=== PATIENT | female | born 1995 | race Caucasian/White ===

== ENCOUNTER 2017-09-10 11:19 | Emergency (ER) | payer OTHER ==
[~2017-09-10] VITALS: Ht 180.3 cm; Wt 53.5 kg
[2017-09-10 11:36] VITALS: BP 105/73
--- NOTE | 2017-09-10 12:22 | Emergency Room Report ---
History of Present Illness General Chief Complaint: Skin Rash/Abscess Source: Patient Present Illness HPI Patient complains of rash itchy intermittent for 2 week Worse at night Denies fevers chills, mucous membrane involvement She reports she is taking gabapentin and has had no change in any other medications She has no other problems She has tried no other meds, but reports she's had steroids in the past when she 's had similar complaint Allergies: Coded Allergies: No Known Allergies (Unverified , 09/10/17) Patient History Past Medical History: see triage record Last Menstrual Period: 06/16/17 Reviewed Nursing Documentation: PMH: Agreed, PSxH: Agreed Nursing Documentation-PMH Hx Seizures: Yes Review of Systems All Other Systems: negative except mentioned in HPI Physical Exam Vital Signs Date Time Temp Pulse Resp B/P (MAP) Pulse Ox O2 Delivery O2 Flow Rate FiO2 09/10/17 11:30 98.1 99 18 105/73 98 Room Air Sp02 EP Interpretation: reviewed, normal General Appearance: no apparent distress, alert, non-toxic Head: normocephalic Eyes: bilateral eye normal inspection, bilateral eye PERRL, bilateral eye EOMI ENT: normal ENT inspection, hearing grossly normal, normal pharynx, no angioedema, normal voice, moist mucus membranes Neck: normal inspection, full range of motion, supple, supple/symm/no masses Respiratory: chest non-tender, lungs clear, normal breath sounds, chest symmetrical, palpation of chest normal Cardiovascular #1: normal peripheral pulses, regular rate, rhythm Cardiovascular #2: 2+ radial (R), 2+ radial (L) Gastrointestinal: normal inspection, non tender, soft, no mass, no guarding, no rebound Rectal: deferred Genitourinary: normal inspection, no CVA tenderness Musculoskeletal: back normal, gait/station normal, normal range of motion, non- tender, no calf tenderness Neurologic: alert, responsive, estate conservator III-XII nml as tested, motor strength/tone normal, sensory intact, speech normal Psychiatric: judgement/insight normal, memory normal, mood/affect normal, no suicidal/homicidal ideation Skin: normal color, no rash - very sparse areas of petechial, nonblanching rash on trunk and all extremities patient subjectively reports it's worse at night and is minimal now no obvious pruritus, warm/dry, normal turgor Lymphatic: no adenopathy Medical Decision Making Diagnostic Impression: Primary Impression: Rash and other nonspecific skin eruption ER Course patient with rash, very nonspecific, and very unimpressive on examination today , just a few red spots which are pinpoint and diffuse not confluent at all and do not appear to be causing any itching or pain; they're not raisedand they appear very benign. patient will receive one dose of by mouth Decadron 2 mg here and followup with a geological survey field assistant if symptoms persist. Medication reconciliation and review of triggers reveal no obvious etiology, but rash presentation is very benign patient had a normal CBC, do not suspect any platelet disorder causing serious rash Last Vital Signs Date Time Temp Pulse Resp B/P (MAP) Pulse Ox O2 Delivery O2 Flow Rate FiO2 09/10/17 11:36 98.1 69 18 105/73 98 Room Air Disposition: HOME, SELF-CARE Condition: Stable MICHELET ALLEN M.D Sep 10, 2017 12:22
[2017-09-10 12:36] LABS: BASOPHILS % (AUTO) 1.4 % (0.0-2.0); EOSINOPHILS % (AUTO) 1.5 % (0.0-3.0); HEMATOCRIT 42.3 % (37.0-47.0); LYMPHOCYTES % (AUTO) 34.8 % (20.0-45.0); MEAN CORPUSCULAR VOLUME 90 FL (80-99); MONOCYTES % (AUTO) 7.7 % (1.0-10.0); NEUTROPHILS % (AUTO) 54.6 % (45.0-75.0); PLATELET COUNT 251 K/UL (150-450); RED BLOOD COUNT 4.69 M/UL (4.20-5.40); RED CELL DISTRIBUTION WIDTH 12.1 % (11.6-14.8); WHITE BLOOD COUNT 7.2 K/UL (4.8-10.8)
[2017-09-10 13:28] VITALS: BP 106/78
== END 2017-09-10 13:29 | disposition home or self-care (01) ==
LOC: EMR 12:55
DX: R21 Rash and other nonspecific skin eruption (principal)
CPT/HCPCS: 36415; 85025; 99282; J8540

== ENCOUNTER 2018-05-02 10:40 | Emergency (ER) | payer OTHER ==
[~2018-05-02] VITALS: Ht 177.8 cm; Wt 54.4 kg
[2018-05-02] MEDS ORDERED: GABAPENTIN600 MG ORAL (10:49)
[2018-05-02] MEDS ORDERED: NALTREXONE HCL5 GM MC (10:49)
[2018-05-02 10:51] VITALS: BP 110/63
[2018-05-02 11:22] LABS: APPEARANCE,URINE CLEAR; BILIRUBIN, URINE NEGATIVE (NEGATIVE); COLOR,URINE PALE YELLOW; GLUCOSE, URINE (UA) NEGATIVE (NEGATIVE); KETONES,URINE NEGATIVE (NEGATIVE); LEUKOCYTE ESTERASE ,URINE 1+ (NEGATIVE); NITRITE,URINE NEGATIVE (NEGATIVE); PH,URINE 6 (4.5-8.0); PROTEIN,URINE NEGATIVE (NEGATIVE); UROBILINOGEN,URINE NORMAL MG/DL (0.0-1.0)
[2018-05-02 12:38] LABS: BASOPHILS % (AUTO) 1.1 % (0.0-2.0); EOSINOPHILS % (AUTO) 5.7 % (0.0-3.0); HEMATOCRIT 44.2 % (37.0-47.0); HEMOGLOBIN 14.4 G/DL (12.0-16.0); LYMPHOCYTES % (AUTO) 40.8 % (20.0-45.0); MEAN CORPUSCULAR VOLUME 88 FL (80-99); MONOCYTES % (AUTO) 6.9 % (1.0-10.0); NEUTROPHILS % (AUTO) 45.6 % (45.0-75.0); PLATELET COUNT 261 K/UL (150-450); RED BLOOD COUNT 5.01 M/UL (4.20-5.40); RED CELL DISTRIBUTION WIDTH 11.5 % (11.6-14.8); WHITE BLOOD COUNT 6.6 K/UL (4.8-10.8)
--- NOTE | 2018-05-02 13:30 | Emergency Room Report ---
History of Present Illness General Chief Complaint: Back Pain-No Injury Source: Patient Present Illness [facility] This patient has multiple complaints. She states that she has had some upper back pain that comes and goes. She states she's also had multiple episodes of a tingling sensation all over her body. She states that she also became very sweaty during the episodes. She states right now she feels much better. She did see an urgent care and had some basic labs done. She states that she was told her BUN was low. She denies recent illness. She denies cough or congestion. She denies chest pain or shortness of breath. She denies abdominal pain. She denies dysuria or hematuria. She denies abnormal vaginal discharge. She has no other complaints. Allergies: Coded Allergies: No Known Allergies (Unverified , 09/10/17) Patient History Past Medical History: see triage record, seizures Social History: Reports: drug use - THC; Denies: smoking, alcohol use Now: No Reviewed Nursing Documentation: PMH: Agreed; PSxH: Agreed Nursing Documentation-PMH Past Medical History: No Stated History Hx Seizures: Yes Review of Systems All Other Systems: negative except mentioned in HPI Physical Exam Vital Signs Date Time Temp Pulse Resp B/P (MAP) Pulse Ox O2 Delivery O2 Flow Rate FiO2 05/02/18 10:41 97.9 111 19 110/63 98 Room Air 97.9 Sp02 EP Interpretation: reviewed, normal General Appearance: no apparent distress, alert, GCS 15, non-toxic Head: normocephalic, atraumatic Eyes: bilateral eye normal inspection, bilateral eye PERRL ENT: hearing grossly normal, normal pharynx, no angioedema, normal voice Neck: full range of motion, supple/symm/no masses Respiratory: chest non-tender, lungs clear, normal breath sounds, no respiratory distress, no retraction, no accessory muscle use, speaking full sentences Cardiovascular #1: no edema, tachycardia Gastrointestinal: normal bowel sounds, non tender, soft, non-distended, no guarding, no rebound Rectal: deferred Musculoskeletal: back normal, gait/station normal, normal range of motion, non- tender Neurologic: alert, oriented x3, responsive, motor strength/tone normal, sensory intact, speech normal Psychiatric: judgement/insight normal, memory normal, mood/affect normal, no suicidal/homicidal ideation Skin: normal color, no rash, warm/dry, well hydrated Medical Decision Making Diagnostic Impression: Primary Impression: Chills Additional Impression: Back pain ER Course Patient presented with very nonspecific symptoms. She describes several episodes where she became clammy. She also has had some back pain that is most consistent with a mechanical low back pain. Regardless, I did do a thorough laboratory evaluation which included CBC, CMP, thyroid function tests and a urinalysis. The patient overall was nontoxic with a normal physical examination. I did not identify an emergency medical condition. When I went to discuss this with the patient she became very agitated and frustrated. She raised her voice and demanded to know what was wrong with her that she knew her body and something is wrong with her. Further, I explained to her that she would need to follow-up with her primary care physician for testing that could be more specific, such as vitamin testing. The patient became even more agitated and frustrated. She then left the emergency department without her discharge paperwork. I'm unsure of the source of this patient's frustration. Prior to this, the patient was calm and pleasant and our interactions were pleasant. She seemed to rapidly have a change in her mood. Regardless, I did not identify any emergency medical condition and I do not feel that she needed any further testing. She eloped without paperwork. Laboratory Tests Test 05/02/18 10:50 05/02/18 12:20 Urine Color Pale yellow Urine Appearance Clear Urine pH 6 (4.5-8.0) Urine Specific [place] 1.010 (1.005-1.035) Urine Protein Negative (NEGATIVE) Urine Glucose (UA) Negative (NEGATIVE) Urine Ketones Negative (NEGATIVE) Urine Blood Negative (NEGATIVE) Urine Nitrite Negative (NEGATIVE) Urine Bilirubin Negative (NEGATIVE) Urine Urobilinogen Normal MG/DL (0.0-1.0) Urine Leukocyte Esterase 1+ (NEGATIVE) H Urine RBC 0-2 /HPF (0 - 2) Urine WBC 2-4 /HPF (0 - 2) Urine Squamous Epithelial Cells Many /LPF (NONE/OCC) H Urine Bacteria Few /HPF (NONE) Urine HCG, Qualitative Negative (NEGATIVE) Urine Opiates Screen Negative (NEGATIVE) Urine Barbiturates Screen Negative (NEGATIVE) Phencyclidine (PCP) Screen Negative (NEGATIVE) Urine Amphetamines Screen Negative (NEGATIVE) Urine Benzodiazepines Screen Negative (NEGATIVE) Urine Cocaine Screen Negative (NEGATIVE) Urine Marijuana (THC) Screen Negative (NEGATIVE) White Blood Count 6.6 K/UL (4.8-10.8) Red Blood Count 5.01 M/UL (4.20-5.40) Hemoglobin 14.4 G/DL (12.0-16.0) Hematocrit 44.2 % (37.0-47.0) Mean Corpuscular Volume 88 FL (80-99) Mean Corpuscular Hemoglobin 28.7 PG (27.0-31.0) Mean Corpuscular Hemoglobin Concent 32.6 G/DL (32.0-36.0) Red Cell Distribution Width 11.5 % (11.6-14.8) L Platelet Count 261 K/UL (150-450) Mean Platelet Volume 8.0 FL (6.5-10.1) Neutrophils (%) (Auto) 45.6 % (45.0-75.0) Lymphocytes (%) (Auto) 40.8 % (20.0-45.0) Monocytes (%) (Auto) 6.9 % (1.0-10.0) Eosinophils (%) (Auto) 5.7 % (0.0-3.0) H Basophils (%) (Auto) 1.1 % (0.0-2.0) Sodium Level 138 MMOL/L (136-145) Potassium Level 4.7 MMOL/L (3.5-5.1) Chloride Level 104 MMOL/L (98-107) Carbon Dioxide Level 25 MMOL/L (21-32) Anion Gap 9 mmol/L (5-15) Blood Urea Nitrogen 8 mg/dL (7-18) Creatinine 0.8 MG/DL (0.55-1.30) Estimate Glomerular Filtration Rate > 60 mL/min (>60) Glucose Level 89 MG/DL (74-106) Calcium Level 9.1 MG/DL (8.5-10.1) Total Bilirubin 0.3 MG/DL (0.2-1.0) Aspartate Amino Transferase (AST) 28 U/L (15-37) Alanine Aminotransferase (ALT) 30 U/L (12-78) Alkaline Phosphatase 87 U/L (46-116) Total Protein 7.2 G/DL (6.4-8.2) Albumin 3.8 G/DL (3.4-5.0) Globulin 3.4 g/dL Albumin/Globulin Ratio 1.1 (1.0-2.7) Thyroid Stimulating Hormone (TSH) 1.494 uiU/mL (0.358-3.740) Free Thyroxine 0.80 NG/DL (0.76-1.46) Last Vital Signs Date Time Temp Pulse Resp B/P (MAP) Pulse Ox O2 Delivery O2 Flow Rate FiO2 05/02/18 10:51 97.9 19 110/63 98 Room Air 97.9 05/02/18 10:41 111 Disposition: ELOPED Condition: Stable Referrals: NOT CHOSEN IPA/,REFERRING (PCP) Layla Pearce DO May 02, 2018 13:30
[2018-05-02 14:00] VITALS: BP_SYST 12; BP_SYST 120; BP_DIAS 75
[2018-05-02 14:23] LABS: ANION GAP 9 mmol/L (5-15); BLOOD UREA NITROGEN 8 mg/dL (7-18); CALCIUM 9.1 MG/DL (8.5-10.1); CARBON DIOXIDE 25 MMOL/L (21-32); CHLORIDE 104 MMOL/L (98-107); CREATININE 0.8 MG/DL (0.55-1.30); POTASSIUM 4.7 MMOL/L (3.5-5.1); SODIUM 138 MMOL/L (136-145)
[2018-05-02 14:33] LABS: ALANINE AMINOTRANSFERASE 30 U/L (12-78); ALBUMIN 3.8 G/DL (3.4-5.0); ALBUMIN/GLOBULIN RATIO 1.1 (1.0-2.7); ASPARTATE AMINO TRANSFERASE 28 U/L (15-37); BILIRUBIN,TOTAL 0.3 MG/DL (0.2-1.0)
[2018-05-02 14:34] LABS: ALKALINE PHOSPHATASE 87 U/L (46-116)
[2018-05-02 14:49] VITALS: BP 110/63
== END 2018-05-02 14:49 | disposition left against medical advice (07) ==
LOC: EMR 11:05
DX: M54.9 Dorsalgia, unspecified (principal); R68.83 Chills (without fever)
CPT/HCPCS: 36415; 80053; 80307; 81003; 81025; 84439; 84443; 85025; 99284

== ENCOUNTER 2018-06-03 16:33 | Emergency (ER) | payer OTHER ==
[~2018-06-03] VITALS: Ht 160 cm; Wt 54.4 kg
[~2018-06-03 16:33] MED LIST: GABAPENTIN600 MG ORAL; NALTREXONE HCL5 GM MC
[2018-06-03 16:38] VITALS: BP 98/64
--- NOTE | 2018-06-03 16:40 | Emergency Room Report ---
History of Present Illness General Chief Complaint: Overdose Source: Patient Present Illness HPI Patient is a 22-year-old female who presented after reported overdose of heroin. Patient had been given Narcan 4mg intranasally by EMS. patient subsequently been having increased nausea. The patient states she does not recall using. Patient was reportedly found unresponsive by EMS with a depressed respirations.Patient denies any recent opiate use. She reports increased nausea Allergies: Coded Allergies: No Known Allergies (Unverified , 09/10/17) Patient History Past Medical History: see triage record Last Menstrual Period: 2 weeks ago Reviewed Nursing Documentation: PMH: Agreed; PSxH: Agreed Nursing Documentation-PMH Past Medical History: No History, Except For Hx Seizures: Yes Review of Systems All Other Systems: negative except mentioned in HPI Physical Exam Vital Signs Date Time Temp Pulse Resp B/P (MAP) Pulse Ox O2 Delivery O2 Flow Rate FiO2 06/03/18 16:35 97.8 130 18 98/64 99 Room Air 97.9 General Appearance: well appearing, no apparent distress, alert, GCS 15 Head: normocephalic, atraumatic ENT: hearing grossly normal, normal voice Neck: full range of motion, supple Respiratory: no respiratory distress, speaking full sentences Musculoskeletal: no calf tenderness Neurologic: normal gait Psychiatric: mood/affect normal Skin: no rash Medical Decision Making Diagnostic Impression: Primary Impression: Drug overdose Last Vital Signs Date Time Temp Pulse Resp B/P (MAP) Pulse Ox O2 Delivery O2 Flow Rate FiO2 06/03/18 16:35 97.8 130 18 98/64 99 Room Air 97.9 Jason Velazquez MD Jun 03, 2018 16:40
[2018-06-03] MEDS ORDERED: Ketorolac 30mg Inj IV ONE (17:00)
[2018-06-03 17:23] LABS: ANION GAP 18 mmol/L (5-15); BLOOD UREA NITROGEN 23 mg/dL (7-18); CARBON DIOXIDE 21 MMOL/L (21-32); CHLORIDE 100 MMOL/L (98-107); CREATININE 1.3 MG/DL (0.55-1.30); POTASSIUM 4.5 MMOL/L (3.5-5.1); SODIUM 139 MMOL/L (136-145)
[2018-06-03 17:24] LABS: BASOPHILS % (AUTO) 0.3 % (0.0-2.0); EOSINOPHILS % (AUTO) 0.1 % (0.0-3.0); HEMATOCRIT 37.6 % (37.0-47.0); HEMOGLOBIN 12.7 G/DL (12.0-16.0); LYMPHOCYTES % (AUTO) 12.8 % (20.0-45.0); MEAN CORPUSCULAR VOLUME 89 FL (80-99); MONOCYTES % (AUTO) 2.7 % (1.0-10.0); NEUTROPHILS % (AUTO) 84.1 % (45.0-75.0); PLATELET COUNT 367 K/UL (150-450); RED BLOOD COUNT 4.21 M/UL (4.20-5.40); RED CELL DISTRIBUTION WIDTH 12.3 % (11.6-14.8)
[2018-06-03 17:28] LABS: ALANINE AMINOTRANSFERASE 52 U/L (12-78); ALBUMIN 3.8 G/DL (3.4-5.0); ALKALINE PHOSPHATASE 117 U/L (46-116); ASPARTATE AMINO TRANSFERASE 46 U/L (15-37); BILIRUBIN,TOTAL 0.5 MG/DL (0.2-1.0); CREATINE KINASE 75 U/L (26-308)
[2018-06-03 18:09] VITALS: BP 101/62
[2018-06-03 18:29] LABS: APPEARANCE,URINE CLEAR; BILIRUBIN, URINE NEGATIVE (NEGATIVE); GLUCOSE, URINE (UA) NEGATIVE (NEGATIVE); KETONES,URINE 4+ (NEGATIVE); LEUKOCYTE ESTERASE ,URINE NEGATIVE (NEGATIVE); NITRITE,URINE NEGATIVE (NEGATIVE); PH,URINE 6 (4.5-8.0); PROTEIN,URINE 2+ (NEGATIVE); UROBILINOGEN,URINE NORMAL MG/DL (0.0-1.0)
[2018-06-03 18:33] LABS: COLOR,URINE YELLOW
== END 2018-06-03 18:12 | disposition home or self-care (01) ==
LOC: EDUNIT# 16:33 → EDBD 16:33 → EMR 16:55
DX: T40.1X1A Poisoning by heroin, accidental (unintentional), initial encounter (principal); Y92.9 Unspecified place or not applicable; R11.0 Nausea
CPT/HCPCS: 36415; 80053; 80329; 81001; 81025; 82550; 85025; 96361; 96374; 96375; 99284; J2405